=== PATIENT | male | born 1995 | race Two or more races ===

== ENCOUNTER 2021-11-16 14:43 | Outpatient (CLI) | payer OTHER, SELFPAY ==
[~2021-11-16] VITALS: Ht 170.2 cm; Wt 56.7 kg
[~2021-11-16 14:43] MED LIST: ALBUTEROL SULFATE 2.5 MG/0.5 ML INH NEB SOLN INH PRN; EPINEPHrine INJ 1 MG/ML 1ML AMP IM PRN; diphenhydrAMINE 50MG/ML VIAL (J1200) IV PRN; methylPREDNISolone 125MG 2ML VIAL IV PRN
[2021-11-16 15:15] VITALS: BP 131/69
[2021-11-16] MEDS ORDERED: LORATADINE 10 MG TAB PO ONE (15:15)
[2021-11-16] MEDS ORDERED: NS 1,000 ML IV SCH (16:00)
[2021-11-16] MEDS ORDERED: VEDOLIZUMAB 300 MG in NS 250 ML IV ONE (16:00)
[2021-11-16] MEDS ORDERED: ACETAMINOPHEN TAB 650MG DOSE (2X325MG) PO ONE (16:00)
[2021-11-16 16:05] VITALS: BP 133/74
== END 2021-11-16 16:10 | disposition home or self-care (01) ==
LOC: M INFU 14:43
PROVIDERS: ATTEND Internal Medicine
DX: K51.919 Ulcerative colitis, unspecified with unspecified complications (principal); Z91.013 Allergy to seafood
CPT/HCPCS: 96365; J3380

== ENCOUNTER 2021-12-14 16:21 | Outpatient (CLI) | payer OTHER ==
[~2021-12-14] VITALS: Ht 170.2 cm; Wt 56.3 kg
[~2021-12-14 16:21] MED LIST changes: +ACETAMINOPHEN TAB 650MG DOSE (2X325MG) PO ONE; +LORATADINE 10 MG TAB PO ONE; +NS 1,000 ML IV ONE; +VEDOLIZUMAB 300 MG in NS 250 ML IV ONE
[2021-12-14 16:30] VITALS: BP 118/62
[2021-12-14 17:06] VITALS: BP 121/73
== END 2021-12-14 17:07 | disposition home or self-care (01) ==
LOC: M INFU 16:21
PROVIDERS: ATTEND Internal Medicine
DX: K51.919 Ulcerative colitis, unspecified with unspecified complications (principal); Z91.013 Allergy to seafood
CPT/HCPCS: 96365; J3380

== ENCOUNTER 2022-01-14 13:55 | Outpatient (CLI) | payer OTHER ==
[~2022-01-14] VITALS: Ht 170.2 cm; Wt 56.7 kg
[2022-01-14 13:55] VITALS: BP 106/59
[~2022-01-14 13:55] MED LIST changes: -ACETAMINOPHEN TAB 650MG DOSE (2X325MG) PO ONE; -LORATADINE 10 MG TAB PO ONE; -NS 1,000 ML IV ONE; -VEDOLIZUMAB 300 MG in NS 250 ML IV ONE
[2022-01-14] MEDS ORDERED: ACETAMINOPHEN TAB 650MG DOSE (2X325MG) PO ONE (14:00)
[2022-01-14] MEDS ORDERED: NS 1,000 ML IV SCH (14:00)
[2022-01-14] MEDS ORDERED: VEDOLIZUMAB 300 MG in NS 250 ML IV ONE (14:00)
[2022-01-14] MEDS ORDERED: LORATADINE 10 MG TAB PO ONE (14:25)
[2022-01-14 15:10] VITALS: BP 106/66
== END 2022-01-14 15:10 | disposition home or self-care (01) ==
LOC: M INFU 13:55
PROVIDERS: ATTEND Internal Medicine
DX: K51.919 Ulcerative colitis, unspecified with unspecified complications (principal); Z91.013 Allergy to seafood
CPT/HCPCS: 96365; J3380

== ENCOUNTER 2022-02-11 15:36 | Outpatient (CLI) | payer OTHER ==
[~2022-02-11] VITALS: Ht 170.2 cm; Wt 56.7 kg
[2022-02-11 15:46] VITALS: BP 116/57
[2022-02-11] MEDS ORDERED: VEDOLIZUMAB 300 MG in NS 250 ML IV ONE (16:30)
[2022-02-11] MEDS ORDERED: LORATADINE 10 MG TAB PO ONE (16:30)
[2022-02-11] MEDS ORDERED: ACETAMINOPHEN TAB 650MG DOSE (2X325MG) PO ONE (16:30)
[2022-02-11] MEDS ORDERED: NS 1,000 ML IV SCH (16:30)
[2022-02-11 16:45] VITALS: BP 112/70
== END 2022-02-11 16:40 | disposition home or self-care (01) ==
LOC: M INFU 15:36
PROVIDERS: ATTEND Internal Medicine
DX: K51.90 Ulcerative colitis, unspecified, without complications (principal)
CPT/HCPCS: 96365; J3380

== ENCOUNTER 2022-03-14 15:15 | Outpatient (CLI) | payer OTHER ==
[~2022-03-14] VITALS: Ht 170.2 cm; Wt 59.1 kg
[2022-03-14 15:15] VITALS: BP 128/73
[~2022-03-14 15:15] MED LIST changes: +ACETAMINOPHEN TAB 650MG DOSE (2X325MG) PO ONE; +LORATADINE 10 MG TAB PO ONE; +NS 1,000 ML IV SCH; +VEDOLIZUMAB 300 MG in NS 250 ML IV ONE
[2022-03-14] MEDS ORDERED: VEDOLIZUMAB 300 MG in NS 250 ML IV ONE (15:30)
[2022-03-14] MEDS ORDERED: ACETAMINOPHEN TAB 650MG DOSE (2X325MG) PO ONE (15:30)
[2022-03-14] MEDS ORDERED: LORATADINE 10 MG TAB PO ONE (15:30)
[2022-03-14] MEDS ORDERED: NS 1,000 ML IV SCH (15:30)
[2022-03-14] MEDS ORDERED: BUDE3CAP PO (15:54)
[2022-03-14 16:25] VITALS: BP 111/70
== END 2022-03-14 16:25 | disposition home or self-care (01) ==
LOC: M INFU 15:15
PROVIDERS: ATTEND Internal Medicine
DX: K51.90 Ulcerative colitis, unspecified, without complications (principal)
CPT/HCPCS: 96365; J3380

== ENCOUNTER 2022-04-08 15:10 | Outpatient (CLI) | payer OTHER ==
[~2022-04-08] VITALS: Ht 170.2 cm; Wt 57.0 kg
[~2022-04-08 15:10] MED LIST changes: -ACETAMINOPHEN TAB 650MG DOSE (2X325MG) PO ONE; +BUDE3CAP PO; -LORATADINE 10 MG TAB PO ONE; -NS 1,000 ML IV SCH; -VEDOLIZUMAB 300 MG in NS 250 ML IV ONE
[2022-04-08 15:16] VITALS: BP 136/60
[2022-04-08] MEDS ORDERED: ACETAMINOPHEN TAB 650MG DOSE (2X325MG) PO ONE (15:30)
[2022-04-08] MEDS ORDERED: VEDOLIZUMAB 300 MG in NS 250 ML IV ONE (15:30)
[2022-04-08] MEDS ORDERED: NS 1,000 ML IV SCH (15:30)
[2022-04-08 16:15] VITALS: BP 116/74
== END 2022-04-08 16:15 | disposition home or self-care (01) ==
LOC: M INFU 15:10
PROVIDERS: ATTEND Internal Medicine
DX: K51.90 Ulcerative colitis, unspecified, without complications (principal)
CPT/HCPCS: 96365; J3380

== ENCOUNTER 2022-05-09 15:00 | Outpatient (CLI) | payer OTHER ==
[~2022-05-09] VITALS: Ht 170.2 cm; Wt 56.7 kg
[2022-05-09 15:00] VITALS: BP 126/70
[~2022-05-09 15:00] MED LIST changes: +ACETAMINOPHEN TAB 650MG DOSE (2X325MG) PO ONE; +LORATADINE 10 MG TAB PO ONE; +NS 1,000 ML IV ONE; +VEDOLIZUMAB 300 MG in NS 250 ML IV ONE; -diphenhydrAMINE 50MG/ML VIAL (J1200) IV PRN; +diphenhydrAMINE 50MG/ML VIAL IV PRN
[2022-05-09] MEDS ORDERED: VEDOLIZUMAB 300 MG in NS 250 ML IV ONE (15:30)
[2022-05-09] MEDS ORDERED: LORATADINE 10 MG TAB PO ONE (15:30)
[2022-05-09 16:25] VITALS: BP 113/61
== END 2022-05-09 16:25 ==
LOC: M INFU 15:00
PROVIDERS: ATTEND Internal Medicine
DX: K51.90 Ulcerative colitis, unspecified, without complications (principal)
CPT/HCPCS: 96365; J3380

== ENCOUNTER 2022-07-28 16:00 | Outpatient (CLI) | payer OTHER ==
[~2022-07-28] VITALS: Ht 170.2 cm; Wt 57.0 kg
[~2022-07-28 16:00] MED LIST changes: -ALBUTEROL SULFATE 2.5 MG/0.5 ML INH NEB SOLN INH PRN; +ALBUTEROL SULFATE 2.5MG/0.5ML INH NEB SOLN INH PRN; -NS 1,000 ML IV ONE; +NS 1,000 ML IV SCH
[2022-07-28 16:10] VITALS: BP 110/86
[2022-07-28 17:01] VITALS: BP 110/64
== END 2022-07-28 17:00 | disposition home or self-care (01) ==
LOC: M INFU 16:00
PROVIDERS: ATTEND Internal Medicine
DX: K51.90 Ulcerative colitis, unspecified, without complications (principal); Z91.013 Allergy to seafood
CPT/HCPCS: 96365; J3380

== ENCOUNTER 2022-08-26 16:14 | Outpatient (CLI) | payer OTHER ==
[~2022-08-26] VITALS: Ht 170.2 cm; Wt 57.0 kg
[~2022-08-26 16:14] MED LIST changes: -ACETAMINOPHEN TAB 650MG DOSE (2X325MG) PO ONE; -LORATADINE 10 MG TAB PO ONE; -NS 1,000 ML IV SCH; -VEDOLIZUMAB 300 MG in NS 250 ML IV ONE
[2022-08-26 16:20] VITALS: BP 109/65
[2022-08-26] MEDS ORDERED: LORATADINE 10 MG TAB PO ONE (16:30)
[2022-08-26] MEDS ORDERED: NS 1,000 ML IV SCH (16:30)
[2022-08-26] MEDS ORDERED: VEDOLIZUMAB 300 MG in NS 250 ML IV ONE (16:30)
[2022-08-26] MEDS ORDERED: ACETAMINOPHEN TAB 650MG DOSE (2X325MG) PO ONE (16:30)
[2022-08-26 17:35] VITALS: BP 112/72
== END 2022-08-26 17:35 | disposition home or self-care (01) ==
LOC: M INFU 16:14
PROVIDERS: ATTEND Internal Medicine
DX: K51.90 Ulcerative colitis, unspecified, without complications (principal)
CPT/HCPCS: 96365; J3380

== ENCOUNTER 2022-09-23 16:39 | Outpatient (CLI) | payer OTHER ==
[~2022-09-23] VITALS: Ht 170.2 cm; Wt 59.1 kg
[~2022-09-23 16:39] MED LIST changes: +ACETAMINOPHEN TAB 650MG DOSE (2X325MG) PO ONE; +LORATADINE 10 MG TAB PO ONE; +NS 1,000 ML IV SCH; +VEDOLIZUMAB 300 MG in NS 250 ML IV ONE
[2022-09-23 16:49] VITALS: BP 115/66
[2022-09-23 17:33] VITALS: BP 114/67
== END 2022-09-23 17:35 ==
LOC: M INFU 16:39
PROVIDERS: ATTEND Internal Medicine
DX: K51.90 Ulcerative colitis, unspecified, without complications (principal)
CPT/HCPCS: 96365; J3380

== ENCOUNTER 2022-10-21 14:30 | Outpatient (CLI) | payer OTHER ==
[~2022-10-21] VITALS: Ht 170.2 cm; Wt 56.7 kg
[~2022-10-21 14:30] MED LIST changes: -ACETAMINOPHEN TAB 650MG DOSE (2X325MG) PO ONE; -LORATADINE 10 MG TAB PO ONE; -NS 1,000 ML IV SCH; -VEDOLIZUMAB 300 MG in NS 250 ML IV ONE
[2022-10-21] MEDS ORDERED: VEDOLIZUMAB 300 MG in NS 250 ML IV ONE (16:30)
[2022-10-21] MEDS ORDERED: ACETAMINOPHEN TAB 650MG DOSE (2X325MG) PO ONE (16:30)
[2022-10-21] MEDS ORDERED: NS 1,000 ML IV SCH (16:30)
[2022-10-21 17:01] VITALS: BP 130/60
[2022-10-21 18:00] VITALS: BP 119/71
== END 2022-10-21 18:00 | disposition home or self-care (01) ==
LOC: M INFU 14:30
PROVIDERS: ATTEND Internal Medicine
DX: K51.90 Ulcerative colitis, unspecified, without complications (principal)
CPT/HCPCS: 96365; J3380

== ENCOUNTER 2022-11-17 15:44 | Outpatient (CLI) | payer OTHER ==
[~2022-11-17] VITALS: Ht 170.2 cm; Wt 56.7 kg
[2022-11-17 15:50] VITALS: BP 142/65
[2022-11-17] MEDS ORDERED: NS 1,000 ML IV SCH (16:00)
[2022-11-17] MEDS ORDERED: ACETAMINOPHEN TAB 650MG DOSE (2X325MG) PO ONE (16:00)
[2022-11-17] MEDS ORDERED: VEDOLIZUMAB 300 MG in NS 250 ML IV ONE (16:00)
[2022-11-17] MEDS ORDERED: LORATADINE 10 MG TAB PO ONE (16:00)
== END 2022-11-17 17:56 | disposition home or self-care (01) ==
LOC: M INFU 15:44
PROVIDERS: ATTEND Internal Medicine
DX: K51.90 Ulcerative colitis, unspecified, without complications (principal); Z91.013 Allergy to seafood
CPT/HCPCS: 96365; J3380

== ENCOUNTER 2022-12-16 15:50 | Outpatient (CLI) | payer OTHER ==
[~2022-12-16] VITALS: Ht 170.2 cm; Wt 61.3 kg
[2022-12-16 13:55] VITALS: BP 136/79; O2SAT 99
[2022-12-16] MEDS ORDERED: VEDOLIZUMAB 300 MG in NS 250 ML IV ONE (16:30)
[2022-12-16] MEDS ORDERED: LORATADINE 10 MG TAB PO ONE (16:30)
[2022-12-16] MEDS ORDERED: ACETAMINOPHEN TAB 650MG DOSE (2X325MG) PO ONE (16:30)
[2022-12-16] MEDS ORDERED: NS 1,000 ML IV SCH (16:30)
[2022-12-16 16:46] VITALS: BP 110/64; O2SAT 100
== END 2022-12-16 16:45 ==
LOC: M INFU 15:50
PROVIDERS: ATTEND Internal Medicine
DX: K51.90 Ulcerative colitis, unspecified, without complications (principal)
CPT/HCPCS: 96365; J3380

== ENCOUNTER 2023-01-13 16:30 | Outpatient (CLI) | payer OTHER ==
[~2023-01-13] VITALS: Ht 170.2 cm; Wt 61.4 kg
[2023-01-13 16:30] VITALS: BP 101/61; O2SAT 99
[~2023-01-13 16:30] MED LIST changes: +ACETAMINOPHEN TAB 650MG DOSE (2X325MG) PO ONE; -ALBUTEROL SULFATE 2.5MG/0.5ML INH NEB SOLN INH PRN; -EPINEPHrine INJ 1 MG/ML 1ML AMP IM PRN; +LORATADINE 10 MG TAB PO ONE; +VEDOLIZUMAB 300 MG in NS 250 ML IV ONE; -diphenhydrAMINE 50MG/ML VIAL IV PRN; -methylPREDNISolone 125MG 2ML VIAL IV PRN
[2023-01-13 17:40] VITALS: BP 104/65; O2SAT 100
== END 2023-01-13 17:40 | disposition home or self-care (01) ==
LOC: M INFU 16:30
PROVIDERS: ATTEND Internal Medicine
DX: K51.90 Ulcerative colitis, unspecified, without complications (principal)
CPT/HCPCS: 96365; J3380

== ENCOUNTER 2023-02-10 16:35 | Outpatient (CLI) | payer OTHER ==
[~2023-02-10] VITALS: Ht 170.2 cm; Wt 60.0 kg
[2023-02-10 16:35] VITALS: BP 108/71; O2SAT 98
[~2023-02-10 16:35] MED LIST changes: -ACETAMINOPHEN TAB 650MG DOSE (2X325MG) PO ONE; +ALBUTEROL SULFATE 2.5MG/0.5ML INH NEB SOLN INH PRN; +EPINEPHrine INJ 1 MG/ML 1ML AMP IM PRN; -LORATADINE 10 MG TAB PO ONE; -VEDOLIZUMAB 300 MG in NS 250 ML IV ONE; +diphenhydrAMINE 50MG/ML VIAL IV PRN; +methylPREDNISolone 125MG 2ML VIAL IV PRN
[2023-02-10] MEDS ORDERED: VEDOLIZUMAB 300 MG in NS 250 ML IV ONE (16:50)
[2023-02-10] MEDS ORDERED: NS 1,000 ML IV SCH (16:50)
[2023-02-10] MEDS ORDERED: ACETAMINOPHEN TAB 650MG DOSE (2X325MG) PO ONE (16:50)
[2023-02-10 18:05] VITALS: BP 113/70; TEMP 36.9; O2SAT 98
== END 2023-02-10 18:05 | disposition home or self-care (01) ==
LOC: M INFU 16:35
PROVIDERS: ATTEND Internal Medicine
DX: K51.90 Ulcerative colitis, unspecified, without complications (principal)
CPT/HCPCS: 96365; J3380

== ENCOUNTER 2023-06-28 13:23 | Outpatient (CLI) | payer OTHER ==
[~2023-06-28] VITALS: Ht 170.2 cm; Wt 64.5 kg
[2023-06-28 13:33] VITALS: BP 136/64; O2SAT 99
[2023-06-28] MEDS ORDERED: NS 1,000 ML IV SCH (14:00)
[2023-06-28] MEDS ORDERED: VEDOLIZUMAB 300 MG in NS 250 ML IV ONE (14:00)
[2023-06-28] MEDS ORDERED: ACETAMINOPHEN TAB 650MG DOSE (2X325MG) PO ONE (14:00)
[2023-06-28] MEDS ORDERED: LORATADINE 10 MG TAB PO ONE (14:00)
[2023-06-28 14:57] VITALS: BP 110/64; O2SAT 99
== END 2023-06-28 15:00 ==
LOC: M INFU 13:23
PROVIDERS: ATTEND Internal Medicine
DX: K51.90 Ulcerative colitis, unspecified, without complications (principal)
CPT/HCPCS: 96365; J3380

== ENCOUNTER 2023-08-14 16:10 | Outpatient (CLI) | payer OTHER ==
[~2023-08-14] VITALS: Ht 170.2 cm; Wt 63.6 kg
[2023-08-14 16:10] VITALS: BP 128/85; O2SAT 99
[2023-08-14] MEDS ORDERED: LORATADINE 10 MG TAB PO ONE (16:30)
[2023-08-14] MEDS ORDERED: NS 1,000 ML IV SCH (16:30)
[2023-08-14] MEDS ORDERED: ACETAMINOPHEN TAB 650MG DOSE (2X325MG) PO ONE (16:30)
[2023-08-14] MEDS: VEDOLIZUMAB 300 MG in NS 250 ML IV ONE (16:31)
[2023-08-14 17:08] VITALS: BP 114/67; O2SAT 99
== END 2023-08-14 17:10 ==
LOC: M INFU 16:10
PROVIDERS: ATTEND Internal Medicine
DX: K51.90 Ulcerative colitis, unspecified, without complications (principal)
CPT/HCPCS: 96365; J3380

== ENCOUNTER 2023-09-11 16:25 | Outpatient (CLI) | payer OTHER ==
[~2023-09-11] VITALS: Ht 170.2 cm; Wt 61.3 kg
[~2023-09-11 16:25] MED LIST changes: +NS 1,000 ML IV SCH
[2023-09-11] MEDS ORDERED: LORATADINE 10 MG TAB PO ONE (16:30)
[2023-09-11] MEDS ORDERED: ACETAMINOPHEN TAB 650MG DOSE (2X325MG) PO ONE (16:30)
[2023-09-11] MEDS: VEDOLIZUMAB 300 MG in NS 250 ML IV ONE (16:49)
[2023-09-11 16:59] VITALS: BP 130/79; TEMP 98.2; O2SAT 97
[2023-09-11 17:34] VITALS: BP 132/66; O2SAT 99
== END 2023-09-11 17:35 ==
LOC: M INFU 16:25
PROVIDERS: ATTEND Internal Medicine
DX: K51.90 Ulcerative colitis, unspecified, without complications (principal)
CPT/HCPCS: 96365; J3380

== ENCOUNTER 2023-10-13 15:15 | Outpatient (CLI) | payer OTHER ==
[~2023-10-13] VITALS: Ht 170.2 cm; Wt 62.0 kg
[2023-10-13 15:20] VITALS: BP 111/73; O2SAT 96
[2023-10-13] MEDS: VEDOLIZUMAB 300 MG in NS 250 ML IV ONE (15:33)
[2023-10-13] MEDS: ACETAMINOPHEN TAB 650MG DOSE (2X325MG) PO ONE (15:39)
== END 2023-10-13 16:10 ==
LOC: M INFU 15:15
PROVIDERS: ATTEND Internal Medicine
DX: K51.919 Ulcerative colitis, unspecified with unspecified complications (principal)
CPT/HCPCS: 96365; J3380